=== PATIENT | male | born 1970 | race Caucasian/White ===

== ENCOUNTER 2020-05-01 12:36 | Day surgery (SDC) | payer OTHER ==
[~2020-05-01 12:36] MED LIST: CEFAZOLIN 2 GM/D5W RTU 2 GM/50 ML RTUPB IV ONE; CEFAZOLIN 2 GM/D5W RTU 2 GM/50 ML RTUPB IV PRN
[2020-05-01 13:25] LABS: HEMATOCRIT 43.5 % (37.9-51.0); HEMOGLOBIN 15.3 g/dL (13.5-17.0); MEAN CORPUSCULAR HEMOGLOBIN 29.4 pg (27.0-33.4); MEAN CORPUSCULAR HGB CONC 35.1 g/dL (32.0-36.0); MEAN CORPUSCULAR VOLUME 84 fl (80-97); PLATELET COUNT 250 10^3/uL (150-450); RED CELL DISTRIBUTION WIDTH 13.9 % (11.5-14.0)
[2020-05-01 13:48] LABS: ANION GAP 9 (5-19); BLOOD UREA NITROGEN 18 mg/dL (7-20); CALCIUM 9.8 mg/dL (8.4-10.2); CARBON DIOXIDE 25 mmol/L (22-30); CHLORIDE 104 mmol/L (98-107); GLUCOSE 121 mg/dL (75-110); POTASSIUM 4.4 mmol/L (3.6-5.0)
[2020-05-01] MEDS ORDERED: MIDAZOLAM 2 MG/2 ML INJ ONE (14:21)
[2020-05-01] MEDS ORDERED: FENTANYL CITRATE INJ/PF 100 MCG/2 ML AMPUL ONE (14:21)
[2020-05-01] MEDS ORDERED: PROPOFOL INJ 200 MG/20 ML VIAL IV ONE (14:21)
[2020-05-01] MEDS ORDERED: LIDOCAINE 1% INJ-PF (10 MG/ML) 30 ML SDV ONE (14:36)
[2020-05-01] MEDS ORDERED: DIPHENHYDRAMINE HCL 50 MG/ML VIAL IV PRN (15:11)
[2020-05-01] MEDS ORDERED: MEPERIDINE HCL/PF INJ 25 MG/1 ML DISP.SYRIN IV PRN (15:11)
[2020-05-01] MEDS ORDERED: PROMETHAZINE HCL INJ 25 MG/1 ML VIAL IV PRN ×2 (15:11)
[2020-05-01] MEDS ORDERED: FENTANYL CITRATE INJ/PF 100 MCG/2 ML AMPUL IV PRN ×3 (15:11)
[2020-05-01] MEDS ORDERED: MORPHINE SULFATE 10 MG/ML INJ IV PRN (15:11)
[2020-05-01] MEDS ORDERED: HYDROCODONE/ACETAMINOPHEN 5-325 MG TABLET PO PRN (15:29)
--- NOTE | 2020-05-01 15:29 | Operative Report ---
Operative Report DATE OF SURGERY: 05/01/20 PREOPERATIVE DIAGNOSIS: Left middle finger mass POSTOPERATIVE DIAGNOSIS: Same OPERATION: Excision deep mass left middle finger SURGEON: CHARLES GARIBAY ANESTHESIA: LMAC TISSUE REMOVED OR ALTERED: Mass left middle finger COMPLICATIONS: None ESTIMATED BLOOD LOSS: Minimal PROCEDURE: Indication for above procedure: 50-year-old male who developed a mass in his left middle finger location of mass cause patient discomfort especially with gripping and grasping objects. Patient was seen in my office at which point we discussed treatment options including operative versus nonoperative intervention after discussing risk and benefits of both decision was made to proceed with operative treatment. Procedure in detail: Patient was seen and evaluated in the preoperative holding area. The LEFT upper extremity was initialized and marked. Patient received 2g of Ancef IV for bact erial prophylaxis. Patient was taken back to the operative room where transferred to the operative table. Once they were adequately anesthetized a nonsterile tourniquet was placed on the upper extremity. A surgical team debriefing was performed ensuring all instrumentation was available, the surgical procedure was discussed with possible concerns reviewed. A digital block was performed utilizing 10 mL of 1% lidocaine without epinephrine. The upper extremity was prepped with chlorhexidine and alcohol and draped in a sterile fashion. A timeout was done identifying correct patient, procedure and extremity everyone in attendance agree with this and verbalized no concerns. The extremity was exsanguinated the tourniquet was inflated to 250 mmHg. Mid lateral skin incision was made on the middle finger at the level of the A2 karen. Blunt dissection was performed. Small peripheral veins were coagulated with bipolar cautery. Neurovascular bundle was identified digital nerve retracted. The underlying deep soft tissue mass was then located emanating from the A2 karen. The mass was successfully excised. A portion of the A2 karen was excised as well given portions of the mass remaining on the A2 karen to avoid recurrence. Tourniquet was then deflated. Any peripheral bleeding was controlled with bipolar cautery into the wound was dry. Skin was closed with interrupted 4-0 nylon suture. Wound was dressed with Xeroform and a soft dressing. 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 Sponge counts, instrument counts, needle counts counts were correct. Patient was then awoken from anesthesia. Transferred from the operating room table to the operating room stretcher. There was no intraoperative complications patient tolerated procedure well stable to PACU. Postoperative plan: Patient will follow-up as scheduled for wound check. They will call with any questions or concerns.
[2020-05-01 17:19] VITALS: BP 122/86
--- NOTE | 2020-05-01 18:26 | EKG REPORT ---
SEVERITY:- OTHERWISE NORMAL ECG - SINUS ARRHYTHMIA, RATE 59-71 VENTRICULAR PREMATURE COMPLEX : Confirmed by: Sacha Mendez MD 01-May-2020 18:24:45
--- NOTE | 2020-05-02 14:12 | Discharge Summary ---
Discharge Summary (SDC) - Discharge Final Diagnosis: Middle finger mass Date of Surgery: 05/01/20 Discharge Date: 05/01/20 Condition: Good Treatment or Instructions: Schedule Follow Up w/ Dr. Alton Wills @ [facility] for Surgery to be seen in 10-14 days or as scheduled [place]: [place]: [place]: May remove dressing on postop day #3, keep incision covered and dry. Ice and elevate May begin finger range of motion attempting to make full fist. Stool softener of choice when on pain medication. USE OF [id number] IBUPROFEN: Ibuprofen (Advil, Nuprin, Medipren, Motrin IB) is a medication for fever and pain control. In addition, it has anti- inflammatory effects which may be beneficial, especially in the treatment of injuries. It's best to take ibuprofen with food. Persons with ulcer disease or allergy to aspirin should notify their physician of this before taking ibuprofen. Ibuprofen can be given every four to six hours, for a total of four doses daily. Age Pain or fever dose Antiinflammatory dose 6-8 yr 200 mg (1 tab) 200 mg (1 tab) 9-11 yr 200 mg (1 tab) 200-400 mg (1-2 tab) 11-14 yr 200-400 mg (1-2 tab) 400 mg (2 tab) 15-adult 400 mg (2 tab) 600 mg (3 tab) ORAL NARCOTIC MEDICATION: You have been given a prescription for pain control. This medication is a narcotic. It's best taken with food, as nausea can result if taken on an empty stomach. Don't operate machinery or drive within six hours of taking this medication. Do not combine this medicine with alcohol, or with any medication which can cause sedation (such as cold tablets or sleeping pills) unless you get permission from the physician. Narcotics tend to cause constipation. If possible, drink plenty of fluids and eat a diet high in fiber and fruits. Please be aware that prescription narcotics also have the potential for abuse. People become addicted to these medications because of the general sense of wellbeing that they induce. This feeling along with a significant reduction in tension, anxiety, and aggression provides a stimulating seductive quality to these drugs. Once your pain is under control, we encourage you to discard your unused narcotics. Prescriptions: Hydrocodone/Acetaminophen [[place] 5-325 mg Tablet] 1 tab PO Q8 PRN #10 tablet PRN Reason: Discharge Diet: As Tolerated Respiratory Treatments at Home: Deep Breathing/Coughing Discharge Activity: No Lifting Over 10 Pounds, No Lifting/Push/Pulling Report the Following to Your Physician Immediately: Fever over 101 Degrees, Unusual Bleeding, Redness, Swelling, Warmth, Increased Soreness
== END 2020-05-01 16:15 | disposition home or self-care (01) ==
LOC: OROUT 12:36
PROVIDERS: ATTEND Orthopaedic Surgery
DX: M67.441 Ganglion, right hand (principal); M79.645 Pain in left finger(s); E11.9 Type 2 diabetes mellitus without complications; Z87.891 Personal history of nicotine dependence; I10 Essential (primary) hypertension; E78.5 Hyperlipidemia, unspecified; K21.9 Gastro-esophageal reflux disease without esophagitis
CPT/HCPCS: 36415; 82962; 85027; 87635; 80048; 83036; 88305 ×2; 93005; 93010; 01810; 26160; J2250; J3010; J3490; J2704; J0690; C9803; 1810